=== PATIENT | male | born 1990 | race Caucasian/White ===

== ENCOUNTER 2020-04-28 08:46 | Emergency (ER) | payer SELFPAY ==
--- NOTE | 2020-04-28 11:29 | ER ---
Nurse's Notes [facility] Name: Haider Mcdonald Age: 30 yrs Sex: Male : 1990 Arrival Date: 04/28/2020 Time: 08:49 Bed Hall1 Private MD: Diagnosis: Contact with and (suspected) exposure to infections with a predominantly sexual mode of transmission Presentation: 04/28 09:44 Chief complaint: Patient states: exposed to Chlamydia/gonorrhea, Reports burning with ca1 ejaculation started a week ago. GF was treated for 2 weeks ago. Coronavirus screen: Client denies travel out of the [place] in the last 14 days. At this time, the client does not indicate any symptoms associated with coronavirus-19. Ebola Screen: Patient negative for fever greater than or equal to 101.5 degrees Fahrenheit, and additional compatible Ebola Virus Disease symptoms Patient denies exposure to infectious person. Patient denies travel to an Ebola-affected area in the 21 days before illness onset. No symptoms or risks identified at this time. Initial Sepsis Screen: Does the patient meet any 2 criteria? No. Patient's initial sepsis screen is negative. Does the patient have a suspected source of infection? No. Patient's initial sepsis screen is negative. Risk Assessment: Do you want to hurt yourself or someone else? Patient reports no desire to harm self or others. Onset of symptoms was April 28, 2020. 09:44 Method Of Arrival: Ambulatory ca1 09:44 Acuity: DESIRAE 4 ca1 Historical: - Allergies: 09:46 No Known Allergies; ca1 - Home Meds: 09:46 None [Active]; ca1 - PMHx: 09:46 None; ca1 - PSHx: 09:46 None; ca1 - Immunization history:: Adult Immunizations not up to date, Flu vaccine is not up to date. - Social history:: Smoking status: Patient reports the use of cigarette tobacco products, smokes one-half pack cigarettes per day, Patient/guardian denies using alcohol, street drugs, The patient lives with family. - Family history:: not pertinent. Screenin:00 Abuse screen: Denies threats or abuse. Denies injuries from another. Nutritional iw screening: No deficits noted. Tuberculosis screening: No symptoms or risk factors identified. Fall Risk None identified. Assessment: 11:00 General: Appears in no apparent distress. Behavior is calm, cooperative. Pain: Denies iw pain. Neuro: Level of Consciousness is awake, alert, obeys commands, Oriented to person, place, time, situation, Moves all extremities. Full function. Cardiovascular: Patient's skin is warm and dry. Respiratory: Respiratory effort is even, unlabored, Respiratory pattern is regular. GI: No signs and/or symptoms were reported involving the gastrointestinal system. Derm: Skin is intact, is healthy with good turgor. Musculoskeletal: Range of motion: intact in all extremities. 12:00 Reassessment: Patient appears in no apparent distress at this time. Patient and/or zb family updated on plan of care and expected duration. Pain level reassessed. Patient is alert, oriented x 3, equal unlabored respirations, skin warm/dry/pink. discussed protection and sexual health. 12:00 Reassessment: d/c pending IM injection completion. zb Vital Signs: 09:44 BP 127 / 84; Pulse 81; Resp 16; Temp 98.2(TE); Pulse Ox 99% on R/A; Weight 72.57 kg ca1 (R); Height 5 ft. 6 in. (167.64 cm) (R); Pain 0/10; 12:21 BP 114 / 83; Pulse 101; Resp 16; Pulse Ox 97% on R/A; zb 09:44 Body Mass Index 25.82 (72.57 kg, 167.64 cm) ca1 ED Course: 08:49 Patient arrived in ED. as 09:46 Triage completed. ca1 09:46 Arm band placed on right wrist. ca1 10:53 Jeanie Goldberg MD is Attending Physician. ma2 12:00 Patient has correct armband on for positive identification. Bed in low position. Call zb light in reach. Door closed. Noise minimized. 12:09 Ledy Costello, MARIZOL is Primary Nurse. iw 12:10 No provider procedures requiring assistance completed. Patient did not have IV access iw during this emergency room visit. Administered Medications: 12:10 Drug: AZITHromycin 1 grams Route: PO; zb 12:24 Follow up: Response: No adverse reaction zb 12:10 Drug: Rocephin (cefTRIAXone) 250 mg Route: IM; Site: left gluteus; zb 12:24 Follow up: Response: No adverse reaction zb Outcome: 11:28 Discharge ordered by MD. rojas 12:22 Discharged to home ambulatory. zb 12:22 Condition: stable 12:22 Discharge instructions given to patient, significant other, Instructed on discharge instructions, follow up and referral plans. safe sex practices, Demonstrated understanding of instructions, follow-up care, sexual practices 12:24 Patient left the ED. zb Signatures: Marcella Valentin Irene, RN RN iw Jeanie Goldberg MD MD ma2 Acob, Cheryl, RN RN ca1 Leni Flowers RN RN zaliza
--- NOTE | 2020-04-28 11:29 | EDPHYS ---
Physician Documentation [facility] [place], [place] Name: Haider Mcdonald Age: 30 yrs Sex: Male : 1990 Arrival Date: 04/28/2020 Time: 08:49 Bed Hall1 Private MD: ED Physician Jeanie Goldberg HPI: 04/28 11:26 This 30 yrs old Male presents to ER via Ambulatory with complaints of STD ma2 Exposure. 11:26 The patient presents with Onset: The symptoms/episode began/occurred gradually, 3 ma2 day(s) ago. Associated signs and symptoms: Pertinent negatives: diarrhea, hematuria, nausea. Severity of symptoms: At their worst the symptoms were mild, in the emergency department the symptoms are unchanged. The patient has not experienced similar symptoms in the past. Historical: - Allergies: 09:46 No Known Allergies; ca1 - Home Meds: :46 None [Active]; ca1 - PMHx: :46 None; ca1 - PSHx: :46 None; ca1 - Immunization history:: Adult Immunizations not up to date, Flu vaccine is not up to date. - Social history:: Smoking status: Patient reports the use of cigarette tobacco products, smokes one-half pack cigarettes per day, Patient/guardian denies using alcohol, street drugs, The patient lives with family. - Family history:: not pertinent. ROS: 11:26 Constitutional: Negative for fever, chills, and weight loss. ma2 11:26 All other systems are negative. Exam: 11:26 Constitutional: This is a well developed, well nourished patient who is awake, alert, ma2 and in no acute distress. Head/Face: Normocephalic, atraumatic. Eyes: Pupils equal round and reactive to light, extra-ocular motions intact. Lids and lashes normal. Conjunctiva and sclera are non-icteric and not injected. Cornea within normal limits. Periorbital areas with no swelling, redness, or edema. ENT: Nares patent. No nasal discharge, no septal abnormalities noted. Tympanic membranes are normal and external auditory canals are clear. Oropharynx with no redness, swelling, or masses, exudates, or evidence of obstruction, uvula midline. Mucous membranes moist. MS/ Extremity: Pulses equal, no cyanosis. Neurovascular intact. Full, normal range of motion. Neuro: Awake and alert, GCS 15, oriented to person, place, time, and situation. Cranial nerves II-XII grossly intact. Motor strength 5/5 in all extremities. Sensory grossly intact. Cerebellar exam normal. Normal gait. Vital Signs: 09:44 BP 127 / 84; Pulse 81; Resp 16; Temp 98.2(TE); Pulse Ox 99% on R/A; Weight 72.57 kg ca1 (R); Height 5 ft. 6 in. (167.64 cm) (R); Pain 0/10; 12:21 BP 114 / 83; Pulse 101; Resp 16; Pulse Ox 97% on R/A; zb 09:44 Body Mass Index 25.82 (72.57 kg, 167.64 cm) ca1 MDM: 10:53 Patient medically screened. ma2 11:26 Differential diagnosis: nonspecific abdominal pain, UTI, prostatitis, urethritis. Data ma2 reviewed: vital signs, nurses notes. Counseling: I had a detailed discussion with the patient and/or guardian regarding: the historical points, exam findings, and any diagnostic results supporting the discharge/admit diagnosis, the presence of at least one elevated blood pressure reading (>120/80) during this emergency department visit, the need for outpatient follow up. Response to treatment: There is no appreciated change of the patient's symptoms at this time. Administered Medications: 12:10 Drug: AZITHromycin 1 grams Route: PO; zb 12:24 Follow up: Response: No adverse reaction zb 12:10 Drug: Rocephin (cefTRIAXone) 250 mg Route: IM; Site: left gluteus; zb 12:24 Follow up: Response: No adverse reaction zb Disposition: 04/28/20 11:28 Discharged to Home. Impression: Contact with and (suspected) exposure to infections with a predominantly sexual mode of transmission. - Condition is Stable. - Discharge Instructions: Sexually Transmitted Disease, [id number]. - Medication Reconciliation Form, Thank You Letter, Antibiotic Education, Prescription Opioid Use form. - Follow up: Private Physician; When: Tomorrow; Reason: Continuance of care. Signatures: Jeanie Goldberg MD MD ma2 Carmen Lockett RN RN ca1 Leni Flowers RN RN zb Corrections: (The following items were deleted from the chart) 12:24 11:28 04/28/2020 11:28 Discharged to Home. Impression: Contact with and (suspected) zb exposure to infections with a predominantly sexual mode of transmission. Condition is Stable. Forms are Medication Reconciliation Form, Thank You Letter, Antibiotic Education, Prescription Opioid Use. Follow up: Private Physician; When: Tomorrow; Reason: Continuance of care. ma2
[2020-04-28] MEDS ORDERED: AZITHROMYCIN 250 MG TAB ONE (12:14)
[2020-04-28] MEDS ORDERED: CEFTRIAXONE 250 MG/VIAL ONE (12:15)
[2020-04-28 12:29] VITALS: TEMP 98.2
[2020-04-28 12:30] VITALS: BP 114/83; O2SAT 97
== END 2020-04-28 12:24 | disposition home or self-care (01) ==
LOC: ER 08:46
DX: Z20.2 Contact with and (suspected) exposure to infections with a predominantly sexual mode of transmission (principal); F17.210 Nicotine dependence, cigarettes, uncomplicated
CPT/HCPCS: 96372; 99283; J0696